=== PATIENT | male | born 1955 | race Two or more races ===

== ENCOUNTER 2020-07-12 14:54 | Emergency (ER) | payer MEDICAID ==
[~2020-07-12] VITALS: Ht 167.6 cm; Wt 74.8 kg
[2020-07-12 15:09] VITALS: BP 150/80
[2020-07-12] MEDS ORDERED: Lidocaine 1%/ 10mg/ml/EPI 0.01mg/ml 20ml INJ ONE (15:30)
--- NOTE | 2020-07-12 15:30 | NUR ---
came to er complaints of pain in the left leg possible infection due to pain and infection on leg
[2020-07-12] MEDS ORDERED: Lidocaine 2% 20mg/ml/EPI 0.01mg/ml 20ml ONE (15:33)
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
[2020-07-12] MEDS ORDERED: Lidocaine 2% 20mg/ml/Epi 0.005mg/ml 20ml vial INJ ONE (15:45)
--- NOTE | 2020-07-12 15:45 | NUR ---
abscess incision done by dr sampson dressing applied
[2020-07-12] MEDS ORDERED: CEPHALEXIN500 MG ORAL (16:01)
--- NOTE | 2020-07-12 16:12 | Diagnostic Imaging Report ---
EXAM: XR Right Tibia and Fibula, 2 Views CLINICAL HISTORY: Pain TECHNIQUE: Frontal and lateral views of the right tibia and fibula. COMPARISON: No relevant prior studies available. FINDINGS: Bones/joints: Unremarkable. No acute fracture. No dislocation. Soft tissues: Unremarkable. No radiopaque foreign body. IMPRESSION: No acute finding.
--- NOTE | 2020-07-12 16:15 | NUR ---
discharged home with instruction and rx follow up with pmd
== END 2020-07-12 16:20 | disposition home or self-care (01) ==
LOC: EMR 15:30
DX: S89.91XA Unspecified injury of right lower leg, initial encounter (principal); S90.129A Contusion of unspecified lesser toe(s) without damage to nail, initial encounter; W19.XXXA Unspecified fall, initial encounter; Y92.9 Unspecified place or not applicable; E11.9 Type 2 diabetes mellitus without complications
CPT/HCPCS: 10060; 73590; Z7502; 99283